=== PATIENT | male | born 1990 | race Caucasian/White ===

== ENCOUNTER 2021-02-25 21:10 | Emergency (ER) | payer MEDICAID ==
[~2021-02-25] VITALS: Ht 177.8 cm; Wt 131.5 kg
[2021-02-25 21:20] VITALS: BP 130/86
--- NOTE | 2021-02-25 21:20 | NUR ---
TO BED AMBULATORY
--- NOTE | 2021-02-25 21:46 | NUR ---
PT MOVED TO BED #8
--- NOTE | 2021-02-25 22:23 | NUR ---
30 YO/M BIB SELF W C/O RUQ ABDMINAL PAIN X1 WEEK THAT WORSENES THE "LAST FEW DAYS" TO 5/10 S/P DIGESTION OF DELI FOODS. PATIENT DESCRIBES PAIN PRESSURE LIKE, AND REPORTS PAIN COMES AND GOES ACCOMPANIED W NAUSEA, NO VOMITING. DENIES PAIN OR NAUSEA AT THIS TIME. PATIENT REPORTS FEELING WARM YESTERDAY, NO CONFIRMED FEVER. PATIENT REPORTS EPISODES OF DIARRHEA AND CONSTIPATION THE LAST FEW DAYS, NONE TODAY. DENIES ANY INJURIES. BOWEL SOUNDS PRESENT THROUGHOUT, ABDOMEN NON-TENDER. PATIENT SITTING IN ROOM IN CHAIR, BREATHING EVEN AND UNLABORED. NAD NOTED, WILL CONTINUE TO MONITOR. PMH:GALLBLADDER REMOVAL X9 YEARS AGO YAEL
[2021-02-25 22:57] LABS: BASOPHILS # (AUTO) 0.1 K/uL (0.00-0.22); BASOPHILS % (AUTO) 0.4 % (0.0-2.0); EOSINOPHILS # (AUTO) 0.2 K/uL (0-0.4); EOSINOPHILS % (AUTO) 1.3 % (0.0-4.0); HEMATOCRIT 45.5 % (36-52); HEMOGLOBIN 15.3 g/dL (12.0-18.0); LYMPHOCYTES # (AUTO) 1.4 K/uL (2.0-11.5); LYMPHOCYTES % (AUTO) 9.1 % (20.5-51.1); MEAN CORPUSCULAR HEMOGLOBIN 28 pg (27-31); MEAN CORPUSCULAR HGB CONC 34 g/dL (33-37); MEAN CORPUSCULAR VOLUME 83.7 fL (80-94); MONOCYTES # (AUTO) 0.6 K/uL (0.8-1.0); MONOCYTES % (AUTO) 3.5 % (1.7-9.3); NEUTROPHILS # (AUTO) 13.3 K/uL (1.8-7.7); PLATELET COUNT (AUTO) 238 K/uL (140-450); RED BLOOD CELL COUNT(AUTO) 5.43 MIL/uL (4.20-6.10); WHITE BLOOD COUNT (AUTO) 15.6 K/uL (4.8-10.8)
[2021-02-25 22:58] LABS: APPEARANCE,URINE CLEAR (CLEAR); BILIRUBIN,URINE NEGATIVE (NEGATIVE); BLOOD, URINE NEGATIVE (NEGATIVE); COLOR,URINE YELLOW (YELLOW); LEUKOCYTE ESTERASE ,URINE NEGATIVE (NEGATIVE); NITRITE, URINE NEGATIVE (NEGATIVE); UGLUCOSE NEGATIVE (NEGATIVE)
[2021-02-25 23:03] LABS: ALBUMIN 4.2 g/dL (3.4-5.0); ANION GAP 14.1 (8-16); CARBON DIOXIDE 28.5 mmol/L (21-32); CREATININE 1.1 mg/dL (0.6-1.3); POTASSIUM 3.6 mmol/L (3.5-5.1); TOTAL BILIRUBIN 1.9 mg/dL (0.0-1.0)
[2021-02-25 23:17] LABS: NEUTROPHILS % (AUTO) 85.7 % (42.2-75.2)
[2021-02-25 23:34] VITALS: BP 147/85
--- NOTE | 2021-02-25 23:34 | NUR ---
Patient discharged with v/s stable. Written and verbal after care instructions given and explained. Patient verbalized understanding. Ambulatory with steady gait. All questions addressed prior to discharge. Advised to follow up with PMD.
== END 2021-02-25 23:34 | disposition home or self-care (01) ==
LOC: MED 21:10 → EDSEX 21:10 → MED 23:34
DX: R10.32 Left lower quadrant pain (principal)
CPT/HCPCS: 36415; 80053; 81003; 83690; 85025; 99283

== ENCOUNTER 2021-03-02 13:34 | Emergency (ER) | payer MEDICAID, SELFPAY ==
[~2021-03-02] VITALS: Ht 177.8 cm; Wt 86.2 kg
[2021-03-02 13:41] VITALS: BP 161/90
--- NOTE | 2021-03-02 13:49 | NUR ---
TENT3
--- NOTE | 2021-03-02 16:20 | NUR ---
PT AMBULATED TO BED 2.
--- NOTE | 2021-03-02 16:25 | NUR ---
30 y/o M BIB self from home with c/c chest pressure and abdominal pain. Patient A&Ox4, ambulatory, reports LUQ pain x 2-3 weeks, states 0/10 at this time but 7/10 when it occurs, "ball"/intermittent, radiating to RUQ. Patient also states sternal chest pressure 7/10, pressure/intermittent, non-radiating pain. Patient noted that drinking milk worsens pain. Patient reports nausea and intermittent chills. Denies SOB, headache, dizziness, vomiting, constipation, recent fall/trauma/injury. Denies any meds prior to arrival; states Pepto Bismol last week with relief to symptoms. Bed locked in lowest position, side rails x 1. PMH/Meds: Denies NKA Sx: Cholecysectomy 2008
--- NOTE | 2021-03-02 16:33 | NUR ---
Dr. Bean is evaluating patient at bedside.
[2021-03-02] MEDS ORDERED: LORazepam 1 MG TAB PO ONE (16:50)
[2021-03-02 17:10] VITALS: BP 158/99
--- NOTE | 2021-03-02 17:35 | NUR ---
Patient resting in high-fowlers. States "I feel slightly more relaxed."
[2021-03-02] MEDS ORDERED: ATI.5 PO (17:44)
== END 2021-03-02 17:55 | disposition home or self-care (01) ==
LOC: MED 13:34
DX: R06.02 Shortness of breath (principal); F41.9 Anxiety disorder, unspecified; R00.2 Palpitations; Z79.899 Other long term (current) drug therapy
CPT/HCPCS: 71045; 93005; 99283